=== PATIENT | female | born 1975 | race Caucasian/White ===

== ENCOUNTER → 2018-01-22 | Outpatient (CLI) | payer OTHER | LOC: BMCIMAGING 12:57 | PROVIDERS: ATTEND Physician Assistant | DX: S52.125D Nondisplaced fracture of head of left radius, subsequent encounter for closed fracture with routine healing (principal) ==

== ENCOUNTER → 2018-04-21 | Outpatient (CLI) | payer OTHER | LOC: BMCIMAGING 15:32 | PROVIDERS: ATTEND Orthopaedic Surgery Hand Surgery | DX: S52.125G Nondisplaced fracture of head of left radius, subsequent encounter for closed fracture with delayed healing (principal) ==